=== PATIENT | female | born 1965 | race African-American/Black ===

== ENCOUNTER 2024-02-11 09:03 | Emergency (ER) | payer MEDICAID ==
[~2024-02-11] VITALS: Ht 154.9 cm; Wt 68.0 kg
[2024-02-11 09:08] VITALS: O2SAT 100
[2024-02-11 10:44] LABS: BASOPHILS % 0.8 % (0.0-2.0); EOSINOPHILS % 2.5 % (0.0-5.0); HEMOGLOBIN. 14.5 g/dL (12.0-16.0); LYMPHOCYTES % 32.7 % (20.0-50.0); MEAN CORPUSCULAR HEMOGLOBIN 30.3 pg (28.0-32.0); MEAN CORPUSCULAR HGB CONC 32.9 g/dL (31.0-37.0); MEAN CORPUSCULAR VOLUME 92.1 fL (81.0-99.0); MONOCYTES % 6.1 % (2.0-8.0); NEUTROPHILS % 57.9 % (40.0-76.0); PLATELET 190 x1000/uL (130-400); RED BLOOD CELL COUNT 4.79 mill/uL (4.2-5.4); RED CELL DISTRIBUTION WIDTH 14.6 % (11.6-14.6); WHITE BLOOD COUNT 5.8 x1000/uL (4.5-11.0)
[2024-02-11 10:47] LABS: CHLORIDE 110 mEq/L (98-107); POTASSIUM 4.6 mEq/L (3.5-5.1); SODIUM 142 mEq/L (136-145)
[2024-02-11 10:48] LABS: CALCIUM 10.4 mg/dL (8.7-10.4); CARBON DIOXIDE 27 mEq/L (21-32)
[2024-02-11 10:53] LABS: CREATININE 0.8 mg/dL (0.6-1.0); GLUCOSE 128 mg/dL (70-105); UREA NITROGEN BLOOD 12 mg/dL (9-23)
[2024-02-11] MEDS: CLONIDINE 0.1MG TABLET PO ONE (13:59)
[2024-02-11] MEDS: IBUPROFEN 600MG TABLET PO ONE (14:00)
[2024-02-11] MEDS: ACETAMINOPHEN 325MG TABLET PO ONE (14:00)
[2024-02-11] MEDS ORDERED: IBUP-1525 MT (14:04)
[2024-02-11] MEDS ORDERED: TOPUD MT (14:04)
[2024-02-11] MEDS ORDERED: ONDA4TAB50 MT (14:04)
[2024-02-11] MEDS ORDERED: LOSA25TA26 MT (14:05)
[2024-02-11 14:41] VITALS: BP 167/79; PULSE 52; RESP 12; TEMP 36.50292; O2SAT 100
== END 2024-02-11 14:49 | disposition home or self-care (01) ==
LOC: ER 09:03
DX: S06.0X0A Concussion without loss of consciousness, initial encounter (principal); I10 Essential (primary) hypertension; E11.9 Type 2 diabetes mellitus without complications; Z86.73 Personal history of transient ischemic attack (TIA), and cerebral infarction without residual deficits; Z98.890 Other specified postprocedural states; W18.39XA Other fall on same level, initial encounter; Y93.89 Activity, other specified; Y92.89 Other specified places as the place of occurrence of the external cause; Y99.8 Other external cause status
CPT/HCPCS: 80048; 83880; 85025; 36415; 71045; 70450; 72125; 93005; 99285; Z7610